=== PATIENT | female | born 1975 | race Caucasian/White ===

== ENCOUNTER 2016-12-22 17:53 | Inpatient (IN) | payer MEDICAID, OTHER ==
[~2016-12-22] VITALS: Ht 154.9 cm; Wt 66.0 kg
[2016-12-22 18:27] VITALS: Ht 154.9 cm; Wt 66.0 kg
[2016-12-22] MEDS ORDERED: SOD CHLORIDE 0.9% 1,000 ML IV STA (20:08)
[2016-12-22] MEDS ORDERED: morphine 4 MG/ML VIAL IV STA (20:08)
[2016-12-22] MEDS ORDERED: ONDANSETRON 4 MG INJ IV STA (20:08)
[2016-12-22 20:47] LABS: ADD SCAN DIFF NO
[2016-12-22 20:50] LABS: ADD UMIC YES; URINE BILIRUBIN (Dip) NEGATIVE (NEGATIVE); URINE BLOOD (Dip) 1+ (NEGATIVE); URINE COLOR LT. YELLOW (YELLOW); URINE GLUCOSE (Dip) NEGATIVE (NEGATIVE); URINE KETONES (Dip) TRACE (NEGATIVE); URINE LEUKOCYTE ESTERASE (Dip) TRACE (NEGATIVE); URINE NITRITE (Dip) POSITIVE (NEGATIVE); URINE TOTAL PROTEIN (Dip) TRACE (NEGATIVE); URINE UROBILINOGEN (Dip) 0.2 E.U./dL (0.1-1.0)
[2016-12-22 20:53] LABS: ABNORMAL IP MESSAGE 1; HEMATOCRIT 23.7 % (37.0-47.0); MEAN CORPUSCULAR HEMOGLOBIN 13.2 pg (29.0-33.0); MEAN CORPUSCULAR HGB CONC 24.9 g/dl (32.0-37.0); MEAN PLATELET VOLUME 9.7 fl (7.4-10.4); PLATELET COUNT 641 10^3/UL (140-415); RED BLOOD COUNT 4.47 10^6/ul (4.20-5.40); RED CELL DISTRIBUTION WIDTH 23.1 % (11.5-14.5); WHITE BLOOD COUNT 13.4 10^3/ul (4.8-10.8)
[2016-12-22 20:59] LABS: BACTERIA,URINE MANY; SQUAMOUS EPITHELIAL CELL,UR FEW
[2016-12-22 21:00] LABS: ALBUMIN 4.6 g/dl (3.3-4.9)
[2016-12-22 21:01] LABS: POTASSIUM 3.5 mmol/L (3.5-5.1)
[2016-12-22 21:03] LABS: ALBUMIN/GLOBULIN RATIO 1.27; CREATININE 0.6 mg/dl (0.44-1.00); TOTAL PROTEIN 8.2 g/dl (6.1-8.1)
[2016-12-22 21:04] LABS: CALCIUM 9.1 mg/dl (8.4-10.2)
[2016-12-22 21:26] LABS: HYPOCHROMASIA 3+; LYMPHOCYTES # 1.7 10^3/ul (0.8-2.9); MONOCYTE # 0.8 10^3/ul (0.3-0.9); NEUTROPHIL # 10.9 10^3/ul (1.6-7.5); OVALOCYTES 2+; PLATELET ESTIMATE PLT APPEAR INCREASED
[2016-12-22] MEDS ORDERED: ACETAMINOPHEN 325 MG TAB PO ONE (21:30)
[2016-12-22] MEDS ORDERED: CEFTRIAXONE 1 GM/50 ML (PMX) 50 ML IVPB ONE (21:30)
[2016-12-22 21:31] LABS: INR 1.15; PROTIME 14.7 Sec (12.2-14.2); PT RATIO 1.1
--- NOTE | 2016-12-22 22:04 | ERD ---
ER Documentation Chief Complaint Date/Time DATE: 12/22/16 TIME: 22:02 Chief Complaint abdominal pain x 4 days HPI This is a 41-year-old female presents to the ER with lower abdominal pain for the last 4 days. Patient went to her clinic and she was sent to the ER. Patient admits to nausea she denies vomiting and diarrhea. Her appetite is decreased. Patient states that pain is worse whenever she eats. Pain is located in the lower pelvic area. Patient has had fevers and chills at home. Patient does admit to painful urination however denies urinary frequency she denies any vaginal discharge. Patient denies any flank pain. ROS 12 point review of systems was done, all negative except per HPI. Allergies Allergies: Coded Allergies: No Known Drug Allergies (Verified Allergy, Unknown, 12/22/16) PMhx/Soc Medical and Surgical Hx: pt denies Medical Hx History of Surgery: Yes ( X3, ETOPIC PREG X1) Anesthesia Reaction: No Hx Neurological Disorder: No Hx Respiratory Disorders: No Hx Cardiac Disorders: No Hx Psychiatric Problems: No Hx Miscellaneous Medical Probl: No Hx Alcohol Use: No Hx Substance Use: No Hx Tobacco Use: No Smoking Status: Never smoker Physical Exam Vitals Vital Signs Date Time Temp Pulse Resp B/P Pulse Ox O2 Delivery O2 Flow Rate FiO2 12/22/16 18:27 100.6 114 20 114/54 98 Physical Exam GENERAL: The patient is well developed and appropriate for usual state of health , in no apparent distress. HEENT: Atraumatic. CHEST: Clear to auscultation bilaterally. There are no rales, wheezes or rhonchi. HEART: Regular rate and rhythm. No murmurs, clicks, rubs or gallops. ABDOMEN: Soft, nontender and nondistended. Good bowel sounds. No rebound or guarding. No gross peritonitis. No gross organomegaly or masses. No Turner sign or McBurney point tenderness. Patient has severe suprapubic tenderness BACK: No midline or flank tenderness. NEURO: Alert and oriented SKIN: The skin is warm and dry. Result Diagram: 12/22/16203612/22/162036 Results 24 hrs Laboratory Tests Test 12/22/16 20:37 White Blood Count 13.410^3/ul Red Blood Count 4.4710^6/ul Hemoglobin 5.9g/dl Hematocrit 23.7% Mean Corpuscular Volume 53.0fl Mean Corpuscular Hemoglobin 13.2pg Mean Corpuscular Hemoglobin Concent 24.9g/dl Red Cell Distribution Width 23.1% Platelet Count 24411^3/UL Mean Platelet Volume 9.7fl Neutrophils % 81.0% Lymphocytes % 13.0% Monocytes % 6.0% Neutrophils # 10.910^3/ul Lymphocytes # 1.710^3/ul Monocytes # 0.810^3/ul Platelet Estimate PLT APPEAR INCREASED Hypochromasia 3+ Ovalocytes 2+ Prothrombin Time 14.7Sec Prothrombin Time Ratio 1.1 INR International Normalized Ratio 1.15 Activated Partial Thromboplast Time 27.0Sec Urine Color LT. YELLOW Urine Clarity CLOUDY Urine pH 6.0 Urine Specific Bode 1.020 Urine Ketones TRACE Urine Nitrite POSITIVE Urine Bilirubin NEGATIVE Urine Urobilinogen 0.2 E.U./dL Urine Leukocyte Esterase TRACE Urine Microscopic RBC 10-25/HPF Urine Microscopic WBC 2-5/HPF Urine Squamous Epithelial Cells FEW Urine Bacteria MANY Urine Hemoglobin 1+ Urine Glucose NEGATIVE% Urine Total Protein TRACE Sodium Level 139mmol/L Potassium Level 3.5mmol/L Chloride Level 101mmol/L Carbon Dioxide Level 24mmol/L Anion Gap 18 Blood Urea Nitrogen 11mg/dl Creatinine 0.60mg/dl Glucose Level 107mg/dl Calcium Level 9.1mg/dl Total Bilirubin 1.0mg/dl Direct Bilirubin 0.00mg/dl Indirect Bilirubin 1.0mg/dl Aspartate Amino Transf (AST/SGOT) 15IU/L Alanine Aminotransferase (ALT/SGPT) 19IU/L Alkaline Phosphatase 64IU/L Total Protein 8.2g/dl Albumin 4.6g/dl Globulin 3.60g/dl Albumin/Globulin Ratio 1.27 Lipase 38U/L Current Medications Medications (Trade) Dose Ordered Sig/Libia Route PRN Reason Start Time Stop Time Status Last Admin Dose Admin Sodium Chloride (NS) 1,000 ml @ 1,000 mls/hr Q1H STAT IV 12/22/16 20:08 12/22/16 21:07 DC 12/22/16 20:37 Morphine Sulfate (morphine) 4 mg ONCE STAT IV 12/22/16 20:08 12/22/16 20:12 DC 12/22/16 20:37 Ondansetron HCl (Zofran Inj) 4 mg ONCE STAT IV 12/22/16 20:08 12/22/16 20:12 DC 12/22/16 20:36 Acetaminophen 650 mg 650 mg ONCE ONCE PO 12/22/16 21:30 12/22/16 21:31 DC 12/22/16 21:38 Ceftriaxone Sodium (Rocephin) 50 ml @ 100 mls/hr ONCE ONCE IVPB 12/22/16 21:30 12/22/16 21:59 DC 12/22/16 21:38 Procedures/MDM This is a 41-year-old female presents to the ER with abdominal pain. At this time patient's hemoglobin is critically low and transfusion was ordered for patient. Patient will be admitted into the hospital. She also has a urinary tract infection, ceftriaxone was started here in the ER. Departure Diagnosis: Primary Impression: Anemia Additional Impression: UTI (urinary tract infection) Condition: Stable DOMITILA CINTRON Dec 22, 2016 22:04
--- NOTE | 2016-12-22 22:38 | RADRPT ---
PROCEDURE: CT abdomen and pelvis without contrast. CLINICAL INDICATION: Lower abdominal pain TECHNIQUE: CT scan of the abdomen and pelvis without contrast was performed on a multislice CT [facility] utilizing axial imaging from the lung bases through the pubis symphysis. The patient was scann ed without intravenous contrast. Sagittal and coronal reformatted images were made. The CTDIvol is 8.07 mGy and the DLP is 417.13 mGycm. One of the following 3 dose reduction techniques were used during this CT examination: automated exp osure control; adjustment of the mA and /or kV according to patient size; or use of iterative recons truciton technique. COMPARISON: None. FINDINGS: The lung bases are remarkable for a 6 mm right peripheral mid lobe nodule. Scarring is noted in the bilateral lung bases. Mild cardiomegaly is present. The visualized liver, spleen, pancreas, and bilateral adrenal glands are normal. The gallbladder de monstrates cholelithiasis without evidence for acute cholecystitis. The stomach is decompressed. Th e bilateral kidneys are normal. No evidence for hydroureteronephrosis or nephroureterolithiasis is present. The visualized bowel in the is nonobstructive. No evidence for diverticulosis, diverticulitis or ap pendicitis is present. Mild mesenteric inflammation is noted in the left lower quadrant of the abdom en adjacent to the descending and sigmoid colonic junction. This may represent a mesenteritis, infl ammation secondary to inflamed uterus , subserosal myoma or adnexal lesion. Additional imaging with CT or MRI with contrast would be helpful. The visualized pelvis demonstrates moderate distension of the urinary bladder. The imaged portions of the uterus and bilateral adnexa are normal. No pelvic mass, lymphadenopathy, or free fluid is se en. There is no evidence of free air. No aneurysmal dilatation of the aorta is evident. The surrounding osseous structures are remarkable for degenerative spondylosis.. IMPRESSION: 1. Mild left lower quadrant hemipelvic mesenteric inflammation. Differential to include mesenterit is, inflamed subserosal uterine myoma or pelvic uterine infection, or inflammation adjacent to a lob ular left hemipelvic or adnexal lesion. Recommend follow-up CT or MRI with contrast to further evalu ate. 2. 6 mm right peripheral mid lobe nodule. Recommend follow-up CT at 6 months and high risk the pat ient's and 12 months at low risk the patient's per Fleishner Society guidelines. 3. Bibasilar scarring 4. Mild cardiomegaly 5. Cholelithiasis without evidence for acute cholecystitis. RPTAT: HDC .Chiqui Gonzalez MD, MD Date Time Electronically viewed and signed by .Chiqui Gonzalez MD, MD on 12/22/2016 22:38 .C/
[2016-12-22] MEDS ORDERED: ACET325T45 PO (22:39)
--- NOTE | 2016-12-22 22:40 | RADRPT ---
PROCEDURE: US Pelvis. CLINICAL INDICATION: Pelvic pain TECHNIQUE: Multiple sonographic images of the pelvis were obtained utilizing a transabdominal and endovaginal technique. The images were reviewed on a PACS workstation. COMPARISON: CT abdomen and pelvis 12/22/2016 FINDINGS: Uterus: Normal in size, contour and echogenicity with no evidence for myometrial masses. Size is est imated at 9.6 x 6.4 x 4.7 cm. Cervix: No abnormalities of significance are seen. Endometrium: Normal in thickness for the patient's age and likely phase of menstruation; 15.9 mm. Right ovary / adnexa: Normal in size estimated at 3 x 2.6 x 2.2 cm. No evidence for masses, normal blood flow on Doppler interrogation. Left ovary/adnexa: Normal in size estimated at 4.3 x 2.7 x 2.5 cm. No evidence for solid masses, no rmal blood flow on Doppler interrogation. Cul-de-sac: Mild amount of free fluid is present. RPTAT:HJJR IMPRESSION: Mild amount of cul-de-sac free fluid, otherwise unremarkable pelvic ultrasound without findings to yong talbot with the CT from earlier the same day. Physician Jeanine Date Time Electronically viewed and signed by Physician Jeanine on 12/22/2016 22:40 JR/
--- NOTE | 2016-12-22 23:01 | RADRPT ---
PROCEDURE: XR Chest. CLINICAL INDICATION: Chest pain. Abdominal pain TECHNIQUE: Portable AP upright view of the chest was obtained. COMPARISON: None. FINDINGS: The cardiomediastinal silhouette is within upper normal limits. The lungs are clear. There is no e vidence for pleural effusion, pneumothorax or pulmonary vascular congestion. The osseous structures are intact with no evidence for acute abnormality. No free air is seen below the diaphragm. RPTAT:HJJR IMPRESSION: No evidence for acute intrathoracic pathology. Physician Jeanine Date Time Electronically viewed and signed by Physician Jeanine on 12/22/2016 23:01 /
[2016-12-23] MEDS: DEXTROSE 5%-0.45% NACL 1,000 ML IV SCH ×3 (02:47→16:06)
[2016-12-23] MEDS ORDERED: ONDANSETRON 4 MG INJ IV PRN (03:00)
[2016-12-23] MEDS ORDERED: morphine 2 MG INJ IV PRN (03:00)
[2016-12-23] MEDS ORDERED: ACETAMINOPHEN 325 MG TAB PO PRN (03:00)
[2016-12-23] MEDS ORDERED: NACL 0.9% 3 ML SYG IV SCH (03:00)
--- NOTE | 2016-12-23 05:32 | HP ---
Date/Time of Note Date/Time of Note DATE: 12/23/16 TIME: 05:20 Assessment/Plan VTE Prophylaxis VTE Prophylaxis Intervention: SCD's Lines/Catheters IV Catheter Type (from Nrsg): Saline Lock Assessment/Plan Assessment/Plan 1. Sepsis 2/2 LLQ mesenteric inflammation - will obtain CT a/p with contrast for better evaluation - broad spectrum abx - f/u culture results - Pain mgmt - GI consult 2. LLQ abd pain: see above 3. Severe Anemia - Blood transfusion - f/u ferritin, iron panel and FOBT - LDH, haptoglobin to eval for hemolysis - Hematology consult as needed 4. Lung nodule - repeat CT scan in 6 months HPI/ROS Admit Date/Time Admit Date/Time Hx of Present Illness This is a 41 yo female with hx of ectopic 13 years ago and x 2 who presented with 4 days hx of abd pain. pain is mainly localized in LLQ. Reported decreased po intake because of pain, but said when she takes liquid, pain is somehow better. Reported fever the first day pain started. In ER, she was found to have a hgb of 5.9, WBC 13,000, temp 100.6, HR 114, BP 114/54. She denied hematemesis, dark stool or BRBPR. Denied hx of anemia. She said her periods have been regular and denied hx of heavy menses. CT a/p showed mild LLQ mesenteric inflammation, cholelithiasis without cholecystitis and in the lung, there is a 6mm Right peripheral mid lobe nodule. . PMH/Family/Social Social History Smoking Status: Never smoker Exam/Review of Systems Vital Signs Vitals Vital Signs Date Time Temp Pulse Resp B/P Pulse Ox O2 Delivery O2 Flow Rate FiO2 12/22/16 18:27 100.6 114 20 114/54 98 Exam Constitutional: alert, oriented, well developed Head: atraumatic, normocephalic Eyes: EOMI, PERRL Respiratory: clear to auscultation, normal air movement Cardiovascular: other (tachycardic with regular rhythm) Gastrointestinal: soft, tender (in LLQ area. No guarding, no rigidity, no rebound tenderness) Extremities: normal pulses Labs Result Diagram: 12/22/16203612/22/162036 Medications Medications Current Medications Dextrose/Sodium Chloride (D5-1/2ns) 1,000 ml @ 125 mls/hr Q8H IV ; Start at 02:47 Ondansetron HCl (Zofran Inj) 4 mg Q6H PRN IV NAUSEA AND/OR VOMITING; Start at 03:00 Acetaminophen (Tylenol Tab) 650 mg Q6H PRN PO PAIN LEVEL 1-3 OR FEVER; Start at 03:00 Morphine Sulfate (morphine) 2 mg Q4H PRN IV SEVERE PAIN LEVEL 7-10; Start 12/23 at 03:00 Pantoprazole 40 mg 40 mg DAILY@06 IV ; Start 12/23/16 at 06:00 Levofloxacin/ Dextrose (Levaquin 500mg/ D5W 100 ml (Pmx)) 100 ml @ 100 mls/hr Q24H IVPB ; Start 12/23/16 at 06:00 KENDALL LINDSEY MD Dec 23, 2016 05:30
[2016-12-23] MEDS ORDERED: PANTOPRAZOLE 40 MG INJ IV SCH (06:00)
[2016-12-23] MEDS: LEVOFLOXACIN 500MG/D5W (PMX) 100 ML IVPB SCH (07:10)
[2016-12-23 08:48] LABS: ADD SCAN DIFF NO
[2016-12-23 08:51] LABS: ABNORMAL IP MESSAGE 1; BASOPHILS % 0.3 % (0.0-2.0); EOSINOPHILS # 0.1 10^3/ul (0.0-0.5); EOSINOPHILS % 1.1 % (0.0-7.0); HEMOGLOBIN 7.9 g/dl (12.0-16.0); LYMPHOCYTES # 1.3 10^3/ul (0.8-2.9); LYMPHOCYTES % 14.6 % (15.0-51.0); MEAN CORPUSCULAR HGB CONC 27.6 g/dl (32.0-37.0); MEAN CORPUSCULAR VOLUME 60.7 fl (82.0-101.0); MONOCYTES % 11.5 % (0.0-11.0); NEUTROPHIL # 6.4 10^3/ul (1.6-7.5); NEUTROPHILS % 72.3 % (39.0-77.0); RED BLOOD COUNT 4.71 10^6/ul (4.20-5.40); WHITE BLOOD COUNT 8.9 10^3/ul (4.8-10.8)
[2016-12-23 09:01] LABS: IRON 81 ug/dl (35-150)
[2016-12-23 09:03] LABS: HEMATOCRIT 28.6 % (37.0-47.0); MEAN CORPUSCULAR HEMOGLOBIN 16.8 pg (29.0-33.0); PLATELET COUNT 483 10^3/UL (140-415); RED CELL DISTRIBUTION WIDTH 32.5 % (11.5-14.5)
[2016-12-23 09:07] LABS: ALBUMIN 3.7 g/dl (3.3-4.9); ALBUMIN/GLOBULIN RATIO 1.08; BILIRUBIN,INDIRECT 2.4 mg/dl (0-1.1); BILIRUBIN,TOTAL 2.4 mg/dl (0.2-1.3); CALCIUM 8.3 mg/dl (8.4-10.2); CREATININE 0.53 mg/dl (0.44-1.00); MAGNESIUM 2.3 mg/dl (1.7-2.5); POTASSIUM 3.6 mmol/L (3.5-5.1); TOTAL PROTEIN 7.1 g/dl (6.1-8.1)
[2016-12-23 09:10] LABS: TOTAL IRON BINDING CAPACITY 319 ug/dl (241-421)
[2016-12-23 09:41] LABS: FERRITIN 11.6 ng/ml (6.2-137.0)
[2016-12-23] MEDS ORDERED: IOHEXOL 300MG/ML 150 ML BTL ONE (11:37)
[2016-12-23] MEDS ORDERED: SOD CHLORIDE 0.9% 100 ML ONE (11:37)
--- NOTE | 2016-12-23 12:29 | RADRPT ---
PROCEDURE: CT Abdomen and Pelvis with contrast. CLINICAL INDICATION: Abdominal pain TECHNIQUE: CT scan of the abdomen and pelvis with contrast was performed on a multidetector high-r esolution CT scanner. Coronal and sagittal reformatted images were obtained from the axial source im ages. Images were reviewed on a high-resolution PACS workstation. 80 cc of Isovue 300 iodinated cont rast was administered intravenously without reported complication. The total exam CTDI equals 9 mGy and the total exam DLP equals 531 mGy-cm. One or more of the following dose reduction techniques w ere used: Automated exposure control, Adjustment of the mA and/or kV according to patient size, and/ or use of iterative reconstruction technique. COMPARISON: Abdominal CT 12/22/2016 FINDINGS: The heart is mildly enlarged. Right middle lobe 6 mm nodule is stable size. Increasing bibasilar atelectasis. No suspicious hepatic mass identified. The portal vein is patent . No evidence of pancreatic ductal dilatation. The spleen and adrenals are unremarkable. Cholelit hiasis without focal pericholecystic inflammatory changes. No hydronephrosis. No obstructing renal stone. No bowel obstruction. Normal-caliber appendix. No significant retroperitoneal lymphadenopathy, ascites or evidence of pneumoperitoneum. Rim enhancing, dilated tubular structure at the left adnexa with associated inflammatory stranding h as progressed from prior. No drainable rim-enhancing fluid collection is identified. IMPRESSION: Rim enhancing, dilated tubular structure at the left adnexa with associated inflammatory stranding h as progressed from prior. Recommend clinical correlation for possible pelvic inflammatory disease. The findings are concerning for left hydrosalpinx/pyosalpinx. No drainable tubo-ovarian abscess is visualized. No evidence of bowel obstruction. Cholelithiasis without associated pericholecystic inflammatory changes. Normal-caliber appendix. Right middle lobe 6 mm nodule is stable size. RPTAT: AA .Orville Moralez MD, Date Time Electronically viewed and signed by .Orville Moralez MD, on 12/23/2016 12:28 .T/
[2016-12-23 14:31] LABS: HEMOGLOBIN 5.9 g/dl (12.0-16.0)
[2016-12-23 15:05] VITALS: BP 101/59; PULSE 98; RESP 16
--- NOTE | 2016-12-23 16:46 | CONS ---
Date/Time of Note Date/Time of Note DATE: 12/23/16 TIME: 16:33 Assessment/Plan Assessment/Plan Chief Complaint/Hosp Course The patient is a 41 year old female with sepsis 2/2 LLQ mesenteric inflammation , found to have severe microcytic anemia with elevated RDW # Severe microcytic anemia, 5.9 on admission, MCV 53 with elevated RDW 23 suggesting iron deficiency - Iron panel Fe 81, TIBC 319, %sat 25, ferritin 11.6 consistent with iron deficiency. Patient denies history of anemia which argues against inherited disorder such as thalassemia, as does elevated RDW, though will send hemoglobin electrophoresis to rule out concomitant inherited disorder that accounts for severe microcytosis. - Hgb improved to 7.9 s/p 2 units pRBCs - Will give IV iron while in house - Would agree with GI evaluation and Services Program Manager evaluation - Indirect hyperbilirubinemia may be related to hemolysis from transfusion, monitor - f/u LDH, haptoglobin retic count, FOBT # Lung nodule, 6 mm right peripheral mid lobe nodule - repeat CT scan in 6 months Problems: Consultation Date/Type/Reason Admit Date/Time Date of Consultation: Dec 23, 2016 Type of Consultation: Hematology Reason for Consultation Severe microcytic anemia Hx of Present Illness This is a 41 year old female with history of ectopic 13 years ago and x 2 who presented with 4 day history of abdominal pain mainly localized in LLQ. States piain is worse with eating and urinating. Reported fever the first day pain started. In ER, she was found to have a hgb of 5.9, WBC 13,000, temp 100.6, HR 114, BP 114/54. She denied hematemesis, dark stool or BRBPR. Denied history of anemia. She said her periods have been regular and denied history of heavy menses. Her periods last 2 days, 6 pads per day but are not soaked. She has been feeling tired for 1 month. No other bleeding. She has been feeling short of breath while climbing stairs. CT A/P showed mild LLQ mesenteric inflammation, cholelithiasis without cholecystitis and in the lung, there is a 6mm right peripheral mid lobe nodule. CT A/P with contrast 12/23/16 Rim enhancing, dilated tubular structure at the left adnexa with associated inflammatory stranding has progressed from prior. Recommend clinical correlation for possible pelvic inflammatory disease. The findings are concerning for left hydrosalpinx/pyosalpinx. No drainable tubo-ovarian abscess is visualized. No evidence of bowel obstruction. Cholelithiasis without associated pericholecystic inflammatory changes. Normal-caliber appendix. Right middle lobe 6 mm nodule is stable size. CT A/P without contrast 12/22/16 1. Mild left lower quadrant hemipelvic mesenteric inflammation. Differential to include mesenteritis, inflamed subserosal uterine myoma or pelvic uterine infection, or inflammation adjacent to a lobular left hemipelvic or adnexal lesion. Recommend follow-up CT or MRI with contrast to further evaluate. 2. 6 mm right peripheral mid lobe nodule. Recommend follow-up CT at 6 months and high risk the patient's and 12 months at low risk the patient's per Fleishner Society guidelines. 3. Bibasilar scarring 4. Mild cardiomegaly 5. Cholelithiasis without evidence for acute cholecystitis. Past Medical History Medical History: no pertinent history Family History Significant Family History: no pertinent family hx Social History Alcohol Use: none Smoking Status: Never smoker Exam/Review of Systems Vital Signs Vitals Vital Signs Date Time Temp Pulse Resp B/P Pulse Ox O2 Delivery O2 Flow Rate FiO2 12/23/16 15:05 98.0 98 16 101/59 98 Room Air Exam Constitutional: alert, oriented Psych: no complaints Head: normocephalic Eyes: nl conjunctiva Neck: supple Respiratory: clear to auscultation Cardiovascular: regular rate and rhythm Gastrointestinal: soft, tender (LLQ tenderness to palpation) Musculoskeletal: nl extremities to inspection Results Result Diagram: 12/23/16 0825 12/23/16 0825 Results 24 hrs Laboratory Tests Test 12/22/16 20:37 12/22/16 22:50 12/23/16 08:25 White Blood Count 13.4 H 8.9 # Red Blood Count 4.47 4.71 Hemoglobin 5.9 *L 7.9 #L Hematocrit 23.7 L 28.6 #L Mean Corpuscular Volume 53.0 L 60.7 L Mean Corpuscular Hemoglobin 13.2 L 16.8 #L Mean Corpuscular Hemoglobin Concent 24.9 L 27.6 L Red Cell Distribution Width 23.1 H 32.5 #H Platelet Count 641 H 483 #H Mean Platelet Volume 9.7 Neutrophils % 81.0 H 72.3 Lymphocytes % 13.0 L 14.6 L Monocytes % 6.0 11.5 H Neutrophils # 10.9 H 6.4 Lymphocytes # 1.7 1.3 Monocytes # 0.8 1.0 H Platelet Estimate PLT APPEAR INCREASED Hypochromasia 3+ Ovalocytes 2+ Prothrombin Time 14.7 H Prothrombin Time Ratio 1.1 INR International Normalized Ratio 1.15 Activated Partial Thromboplast Time 27.0 Urine Color LT. YELLOW Urine Clarity CLOUDY Urine pH 6.0 Urine Specific New Site 1.020 Urine Ketones TRACE H Urine Nitrite POSITIVE H Urine Bilirubin NEGATIVE Urine Urobilinogen 0.2 E.U./dL Urine Leukocyte Esterase TRACE H Urine Microscopic RBC 10-25 Urine Microscopic WBC 2-5 Urine Squamous Epithelial Cells FEW Urine Bacteria MANY Urine Hemoglobin 1+ H Urine Glucose NEGATIVE Urine Total Protein TRACE Sodium Level 139 138 Potassium Level 3.5 3.6 Chloride Level 101 107 Carbon Dioxide Level 24 24 Anion Gap 18 H 11 # Blood Urea Nitrogen 11 12 Creatinine 0.60 0.53 Glucose Level 107 91 Calcium Level 9.1 8.3 L Total Bilirubin 1.0 2.4 H Direct Bilirubin 0.00 0.00 Indirect Bilirubin 1.0 2.4 H Aspartate Amino Transf (AST/SGOT) 15 11 L Alanine Aminotransferase (ALT/SGPT) 19 27 Alkaline Phosphatase 64 55 Total Protein 8.2 H 7.1 # Albumin 4.6 3.7 Globulin 3.60 H 3.40 H Albumin/Globulin Ratio 1.27 1.08 Lipase 38 Lactic Acid Level 0.6 Eosinophils % 1.1 Basophils % 0.3 Nucleated Red Blood Cells % 0.0 Eosinophils # 0.1 Basophils # 0.0 Nucleated Red Blood Cells # 0.0 Phosphorus Level 3.0 Magnesium Level 2.3 Iron Level 81 Total Iron Binding Capacity 319 Percent Iron Saturation 25 Ferritin 11.6 Medications Medications Current Medications Dextrose/Sodium Chloride (D5-1/2ns) 1,000 ml @ 125 mls/hr Q8H IV Last administered on 12/23/16t 16:06; Admin Dose 125 MLS/HR; Start 12/23/16 at 02:47 Ondansetron HCl (Zofran Inj) 4 mg Q6H PRN IV NAUSEA AND/OR VOMITING; Start at 03:00 Acetaminophen (Tylenol Tab) 650 mg Q6H PRN PO PAIN LEVEL 1-3 OR FEVER; Start at 03:00 Morphine Sulfate (morphine) 2 mg Q4H PRN IV SEVERE PAIN LEVEL 7-10; Start 12/23 at 03:00 Pantoprazole 40 mg 40 mg DAILY@06 IV Last administered on 12/23/16 07:09; Admin Dose 40 MG; Start 12/23/16 at 06:00 Levofloxacin/ Dextrose 100 ml @ 100 mls/hr Q24H IVPB Last administered on 12/23 07:10; Admin Dose 100 MLS/HR; Start 12/23/16 at 06:00 Ferric Sodium Gluconate Complex/ Sodium Chloride (Ferrlecit/NS) 110 ml @ 100 mls/hr Q24H IVPB ; Start 12/23/16 at 17:00; Stop 12/25/16 at 18:05 TOKELLY MD Dec 23, 2016 16:46
[2016-12-23] MEDS ORDERED: SOD FERRIC GLUC COMPLX 125 MG in SOD CHLORIDE 0.9% 100 ML IVPB SCH (17:00)
--- NOTE | 2016-12-23 17:09 | CONS ---
Date/Time of Note Date/Time of Note DATE: 12/23/16 TIME: 16:46 Assessment/Plan Assessment/Plan Additional Assessment/Plan 41 y/o with abdominal and pelvic pain, possible PID -clinically improving, continue antibiotics -check GC/chlamydia -discharge home with oral antibiotics x2 weeks -f/u with outpatient Instrument Mechanic Consultation Date/Type/Reason Admit Date/Time Date of Consultation: Dec 23, 2016 Type of Consultation: Instrument Mechanic Hx of Present Illness 41 y/o who presents with lower abdominal pain. Patient reports pain is new -onset and started 5 days ago. Pain was constant, improved since admission. Seems to be worse with urination. +chills 5 days ago and yesterday, which was low-grade. Denies any abnormal vaginal discharge. No N/V. Periods are regular , LMP 12/03/16. Sexually active with , stable partner. Denies h/o STDs. +h/o ectopic s/p salpingectomy. Per HPI. Other systems negative. Past Medical History Medical History: no pertinent history Past Surgical History CS x3, salpingectomy for ectopic Social History Denies habits. Smoking Status: Never smoker Exam/Review of Systems Vital Signs Vitals Vital Signs Date Time Temp Pulse Resp B/P Pulse Ox O2 Delivery O2 Flow Rate FiO2 12/23/16 15:05 98.0 98 16 101/59 98 Room Air Exam Gen: NAD Abd: soft, +ttp in LLQ and suprapubic area Pelvic: no CMT, +suprapubic and L. adnexal ttp, no r/g Pelvic CT: Rim enhancing, dilated tubular structure at the left adnexa with associated inflammatory stranding has progressed from prior. Recommend clinical correlation for possible pelvic inflammatory disease. The findings are concerning for left hydrosalpinx/pyosalpinx. Pelvic US: Uterus: Normal in size, contour and echogenicity with no evidence for myometrial masses. Size is estimated at 9.6 x 6.4 x 4.7 cm. Cervix: No abnormalities of significance are seen. Endometrium: Normal in thickness for the patient's age and likely phase of menstruation; 15.9 mm. Right ovary / adnexa: Normal in size estimated at 3 x 2.6 x 2.2 cm. No evidence for masses, normal blood flow on Doppler interrogation. Left ovary/adnexa: Normal in size estimated at 4.3 x 2.7 x 2.5 cm. No evidence for solid masses, normal blood flow on Doppler interrogation. Cul-de-sac: Mild amount of free fluid is present. Results Result Diagram: 12/23/16 0825 12/23/16 0825 Results 24 hrs Laboratory Tests Test 12/22/16 20:37 12/22/16 22:50 12/23/16 08:25 White Blood Count 13.4 H 8.9 # Red Blood Count 4.47 4.71 Hemoglobin 5.9 *L 7.9 #L Hematocrit 23.7 L 28.6 #L Mean Corpuscular Volume 53.0 L 60.7 L Mean Corpuscular Hemoglobin 13.2 L 16.8 #L Mean Corpuscular Hemoglobin Concent 24.9 L 27.6 L Red Cell Distribution Width 23.1 H 32.5 #H Platelet Count 641 H 483 #H Mean Platelet Volume 9.7 Neutrophils % 81.0 H 72.3 Lymphocytes % 13.0 L 14.6 L Monocytes % 6.0 11.5 H Neutrophils # 10.9 H 6.4 Lymphocytes # 1.7 1.3 Monocytes # 0.8 1.0 H Platelet Estimate PLT APPEAR INCREASED Hypochromasia 3+ Ovalocytes 2+ Prothrombin Time 14.7 H Prothrombin Time Ratio 1.1 INR International Normalized Ratio 1.15 Activated Partial Thromboplast Time 27.0 Urine Color LT. YELLOW Urine Clarity CLOUDY Urine pH 6.0 Urine Specific [place] 1.020 Urine Ketones TRACE H Urine Nitrite POSITIVE H Urine Bilirubin NEGATIVE Urine Urobilinogen 0.2 E.U./dL Urine Leukocyte Esterase TRACE H Urine Microscopic RBC 10-25 Urine Microscopic WBC 2-5 Urine Squamous Epithelial Cells FEW Urine Bacteria MANY Urine Hemoglobin 1+ H Urine Glucose NEGATIVE Urine Total Protein TRACE Sodium Level 139 138 Potassium Level 3.5 3.6 Chloride Level 101 107 Carbon Dioxide Level 24 24 Anion Gap 18 H 11 # Blood Urea Nitrogen 11 12 Creatinine 0.60 0.53 Glucose Level 107 91 Calcium Level 9.1 8.3 L Total Bilirubin 1.0 2.4 H Direct Bilirubin 0.00 0.00 Indirect Bilirubin 1.0 2.4 H Aspartate Amino Transf (AST/SGOT) 15 11 L Alanine Aminotransferase (ALT/SGPT) 19 27 Alkaline Phosphatase 64 55 Total Protein 8.2 H 7.1 # Albumin 4.6 3.7 Globulin 3.60 H 3.40 H Albumin/Globulin Ratio 1.27 1.08 Lipase 38 Lactic Acid Level 0.6 Eosinophils % 1.1 Basophils % 0.3 Nucleated Red Blood Cells % 0.0 Eosinophils # 0.1 Basophils # 0.0 Nucleated Red Blood Cells # 0.0 Phosphorus Level 3.0 Magnesium Level 2.3 Iron Level 81 Total Iron Binding Capacity 319 Percent Iron Saturation 25 Ferritin 11.6 Medications Medications Current Medications Dextrose/Sodium Chloride (D5-1/2ns) 1,000 ml @ 125 mls/hr Q8H IV Last administered on 12/23/16 16:06; Admin Dose 125 MLS/HR; Start 12/23/16 at 02:47 Ondansetron HCl (Zofran Inj) 4 mg Q6H PRN IV NAUSEA AND/OR VOMITING; Start at 03:00 Acetaminophen (Tylenol Tab) 650 mg Q6H PRN PO PAIN LEVEL 1-3 OR FEVER; Start at 03:00 Morphine Sulfate (morphine) 2 mg Q4H PRN IV SEVERE PAIN LEVEL 7-10; Start 12/23 at 03:00 Pantoprazole 40 mg 40 mg DAILY@06 IV Last administered on 12/23/16 07:09; Admin Dose 40 MG; Start 12/23/16 at 06:00 Levofloxacin/ Dextrose 100 ml @ 100 mls/hr Q24H IVPB Last administered on 12/23 07:10; Admin Dose 100 MLS/HR; Start 12/23/16 at 06:00 Ferric Sodium Gluconate Complex/ Sodium Chloride (Ferrlecit/NS) 110 ml @ 100 mls/hr Q24H IVPB ; Start 12/23/16 at 17:00; Stop 12/25/16 at 18:05 JUNIOR DYER Dec 23, 2016 16:56
--- NOTE | 2016-12-23 17:22 | CONS ---
Date/Time of Note Date/Time of Note DATE: 12/23/16 TIME: 17:06 Assessment/Plan Assessment/Plan Additional Assessment/Plan Acute anemia Evaluate GI bleed versus chronic iron deficiency vs other etiology Stool OB, if positive strongly recommend EGD Monitor H&H every 8 hours, transfuse 2 units for hemoglobin less than 7.[address] abdomen: 1. No evidence of bowel obstruction. 2.Cholelithiasis without associated pericholecystic inflammatory changes. Continue PPI BID EGD if clinically indicated, pt advised of R/B/A to procedure and provide informed consent to proceed Question of PID Manager Resort following Review CT/GC results Further recommendations depend on clinical course Patient seen in collaboration with Dr. Campos Consultation Date/Type/Reason Admit Date/Time Type of Consultation: Gastroenterology Hx of Present Illness Mrs. Josy Alston is a 41-year-old female presented to emergency room secondary to worsening lower left quadrant abdominal pain. Patient states symptoms first started on Monday and began to worsen. Patient also reports intermittent fever and chills with symptoms. Patient denies nausea, vomiting, melena stools, diarrhea, heavy periods. Social History Smoking Status: Never smoker Exam/Review of Systems Vital Signs Vitals Vital Signs Date Time Temp Pulse Resp B/P Pulse Ox O2 Delivery O2 Flow Rate FiO2 12/23/16 15:05 98.0 98 16 101/59 98 Room Air Exam Constitutional: alert, oriented, well developed Psych: nl mood/affect Head: normocephalic Eyes: EOMI, nl conjunctiva, nl lids ENMT: nl external ears & nose, nl lips & teeth, nl nasal mucosa & septum Respiratory: clear to auscultation, normal air movement Cardiovascular: regular rate and rhythm Gastrointestinal: soft, left lower quadrant tenderness tender Musculoskeletal: nl extremities to inspection Neurological: LICENSED JOURNEYMAN ELECTRICIAN II-XII intact Results Result Diagram: 12/23/16 0825 12/23/16 0825 Results 24 hrs Laboratory Tests Test 12/22/16 20:37 12/22/16 22:50 12/23/16 08:25 White Blood Count 13.4 H 8.9 # Red Blood Count 4.47 4.71 Hemoglobin 5.9 *L 7.9 #L Hematocrit 23.7 L 28.6 #L Mean Corpuscular Volume 53.0 L 60.7 L Mean Corpuscular Hemoglobin 13.2 L 16.8 #L Mean Corpuscular Hemoglobin Concent 24.9 L 27.6 L Red Cell Distribution Width 23.1 H 32.5 #H Platelet Count 641 H 483 #H Mean Platelet Volume 9.7 Neutrophils % 81.0 H 72.3 Lymphocytes % 13.0 L 14.6 L Monocytes % 6.0 11.5 H Neutrophils # 10.9 H 6.4 Lymphocytes # 1.7 1.3 Monocytes # 0.8 1.0 H Platelet Estimate PLT APPEAR INCREASED Hypochromasia 3+ Ovalocytes 2+ Prothrombin Time 14.7 H Prothrombin Time Ratio 1.1 INR International Normalized Ratio 1.15 Activated Partial Thromboplast Time 27.0 Urine Color LT. YELLOW Urine Clarity CLOUDY Urine pH 6.0 Urine Specific [place] 1.020 Urine Ketones TRACE H Urine Nitrite POSITIVE H Urine Bilirubin NEGATIVE Urine Urobilinogen 0.2 E.U./dL Urine Leukocyte Esterase TRACE H Urine Microscopic RBC 10-25 Urine Microscopic WBC 2-5 Urine Squamous Epithelial Cells FEW Urine Bacteria MANY Urine Hemoglobin 1+ H Urine Glucose NEGATIVE Urine Total Protein TRACE Sodium Level 139 138 Potassium Level 3.5 3.6 Chloride Level 101 107 Carbon Dioxide Level 24 24 Anion Gap 18 H 11 # Blood Urea Nitrogen 11 12 Creatinine 0.60 0.53 Glucose Level 107 91 Calcium Level 9.1 8.3 L Total Bilirubin 1.0 2.4 H Direct Bilirubin 0.00 0.00 Indirect Bilirubin 1.0 2.4 H Aspartate Amino Transf (AST/SGOT) 15 11 L Alanine Aminotransferase (ALT/SGPT) 19 27 Alkaline Phosphatase 64 55 Total Protein 8.2 H 7.1 # Albumin 4.6 3.7 Globulin 3.60 H 3.40 H Albumin/Globulin Ratio 1.27 1.08 Lipase 38 Lactic Acid Level 0.6 Eosinophils % 1.1 Basophils % 0.3 Nucleated Red Blood Cells % 0.0 Eosinophils # 0.1 Basophils # 0.0 Nucleated Red Blood Cells # 0.0 Phosphorus Level 3.0 Magnesium Level 2.3 Iron Level 81 Total Iron Binding Capacity 319 Percent Iron Saturation 25 Ferritin 11.6 Medications Medications Current Medications Dextrose/Sodium Chloride (D5-1/2ns) 1,000 ml @ 125 mls/hr Q8H IV Last administered on 12/23/16t 16:06; Admin Dose 125 MLS/HR; Start 12/23/16 at 02:47 Ondansetron HCl (Zofran Inj) 4 mg Q6H PRN IV NAUSEA AND/OR VOMITING; Start at 03:00 Acetaminophen (Tylenol Tab) 650 mg Q6H PRN PO PAIN LEVEL 1-3 OR FEVER; Start at 03:00 Morphine Sulfate (morphine) 2 mg Q4H PRN IV SEVERE PAIN LEVEL 7-10; Start 12/23 at 03:00 Pantoprazole 40 mg 40 mg DAILY@06 IV Last administered on 12/23/16 07:09; Admin Dose 40 MG; Start 12/23/16 at 06:00 Levofloxacin/ Dextrose 100 ml @ 100 mls/hr Q24H IVPB Last administered on 12/23 07:10; Admin Dose 100 MLS/HR; Start 12/23/16 at 06:00 Ferric Sodium Gluconate Complex 125 mg/Sodium Chloride 110 ml @ 100 mls/hr Q24H IVPB ; Start 12/23/16 at 17:00; Stop 12/25/16 at 18:05 Ferric Sodium Gluconate Complex/ Sodium Chloride (Ferrlecit/NS) 110 ml @ 110 mls/hr Q24H IVPB ; Start 12/23/16 at 17:00; Stop 12/27/16 at 17:59 KYMBERLY ALMARAZ Dec 23, 2016 17:18
[2016-12-23] MEDS: SOD FERRIC GLUC COMPLX 125 MG in SOD CHLORIDE 0.9% 100 ML IVPB SCH (17:35)
[2016-12-23] MEDS: PANTOPRAZOLE 40 MG INJ IV SCH (17:45)
[2016-12-23 19:15] LABS: RETICULOCYTE COUNT % 0.5 % (0.5-1.5)
[2016-12-23 19:19] VITALS: BP 100/61; RESP 18
[2016-12-24] MEDS: DEXTROSE 5%-0.45% NACL 1,000 ML IV SCH ×2 (01:21→16:26)
[2016-12-24 06:22] LABS: ADD SCAN DIFF NO
[2016-12-24 06:39] LABS: ABNORMAL IP MESSAGE 1; BASOPHILS % 0.5 % (0.0-2.0); EOSINOPHILS # 0.2 10^3/ul (0.0-0.5); EOSINOPHILS % 1.7 % (0.0-7.0); HEMATOCRIT 25.7 % (37.0-47.0); HEMOGLOBIN 7.2 g/dl (12.0-16.0); LYMPHOCYTES # 2.5 10^3/ul (0.8-2.9); LYMPHOCYTES % 29.1 % (15.0-51.0); MEAN CORPUSCULAR HEMOGLOBIN 16.6 pg (29.0-33.0); MEAN CORPUSCULAR VOLUME 59.4 fl (82.0-101.0); MONOCYTE # 1.1 10^3/ul (0.3-0.9); MONOCYTES % 12.1 % (0.0-11.0); NEUTROPHIL # 4.9 10^3/ul (1.6-7.5); NEUTROPHILS % 56.1 % (39.0-77.0); PLATELET COUNT 511 10^3/UL (140-415); RED BLOOD COUNT 4.33 10^6/ul (4.20-5.40); RED CELL DISTRIBUTION WIDTH 31.4 % (11.5-14.5); WHITE BLOOD COUNT 8.7 10^3/ul (4.8-10.8)
[2016-12-24 07:02] LABS: CREATININE 0.55 mg/dl (0.44-1.00); PHOSPHORUS 3.4 mg/dl (2.5-4.9)
[2016-12-24 07:03] LABS: CALCIUM 8.4 mg/dl (8.4-10.2); MAGNESIUM 2.3 mg/dl (1.7-2.5)
[2016-12-24] MEDS: PANTOPRAZOLE 40 MG INJ IV SCH ×2 (07:50→20:26)
[2016-12-24] MEDS: LEVOFLOXACIN 500MG/D5W (PMX) 100 ML IVPB SCH (07:50)
--- NOTE | 2016-12-24 08:00 | RADRPT ---
PROCEDURE: US Abdomen. CLINICAL INDICATION: abdominal pain TECHNIQUE: Multiple real-time images were acquired of the patient's utilizing a high resolution t ransducer. COMPARISON: The abdomen 12/23/2016 FINDINGS: The liver demonstrates normal echogenicity and size and no focal lesions are seen. There are multip le stones within the gallbladder. There is no pericholecystic fluid or gallbladder wall thickening. No intrahepatic biliary dilatation is seen. The common bile duct measures 7 mm in maximal dimensio n. The visualized portions of the pancreas are unremarkable. The right kidney measures 11.5 cm without hydronephrosis. Visualized portions of the aorta and IVC are unremarkable. IMPRESSION: Cholelithiasis. No evidence of cholecystitis. There is a borderline appearance the common duct which can be correlate with bilirubin levels. .Stella Miller MD, Date Time Electronically viewed and signed by .Stella Miller MD, MD on 12/24/2016 07:59 .J/
[2016-12-24 08:14] VITALS: BP 101/68; RESP 18
[2016-12-24] MEDS ORDERED: SOD CHLORIDE 0.9% 250 ML IV* ONE (08:48)
[2016-12-24 09:30] LABS: ALBUMIN 3.3 g/dl (3.3-4.9); BILIRUBIN,INDIRECT 0.8 mg/dl (0-1.1); BILIRUBIN,TOTAL 0.8 mg/dl (0.2-1.3); TOTAL PROTEIN 6.5 g/dl (6.1-8.1)
[2016-12-24] MEDS ORDERED: POTASSIUM CHLORIDE (SR) 20 MEQ TAB PO STA (13:30)
--- NOTE | 2016-12-24 13:36 | PN ---
Date/Time of Note Date/Time of Note DATE: 12/24/16 TIME: 13:34 Assessment/Plan VTE Prophylaxis VTE Prophylaxis Intervention: ambulation Lines/Catheters IV Catheter Type (from Nrs): Peripheral IV Assessment/Plan Assessment/Plan The patient is a 41 year old female with sepsis 2/2 LLQ mesenteric inflammation , found to have severe microcytic anemia with elevated RDW # Severe microcytic anemia, 5.9 on admission, MCV 53 with elevated RDW 23 suggesting iron deficiency - Iron panel Fe 81, TIBC 319, %sat 25, ferritin 11.6 consistent with iron deficiency. - Hgb improved with PRBC and will get one more transfusion today. - continue IV iron while in house - agree with GI evaluation and Slasher evaluation - Indirect hyperbilirubinemia may be related to hemolysis from transfusion, monitor -normal LDH, haptoglobin and appropriate retic count, FOBT pending # Lung nodule, 6 mm right peripheral mid lobe nodule - repeat CT scan in 6 months Subjective 24 Hr Interval Summary Free Text/Dictation no change per nursing staff and family Constitutional: no complaints Exam/Review of Systems Vital Signs Vitals Vital Signs Date Time Temp Pulse Resp B/P Pulse Ox O2 Delivery O2 Flow Rate FiO2 12/24/16 08:14 98.0 90 18 101/68 99 12/23/16 15:05 Room Air Intake and Output 12/23/16 12/23/16 12/24/16 15:00 23:00 07:00 Intake Total 365 ml 1710 ml Output Total 0 ml 480 ml Balance 365 ml 1230 ml Exam no change in PE Results Result Diagram: 12/24/16 0522 12/24/16 0522 Results 24 hrs Laboratory Tests Test 12/23/16 19:00 12/24/16 05:22 12/24/16 09:13 12/24/16 12:59 Absolute Reticulocyte Count 0.022 Percent Reticulocyte Count 0.5 Lactate Dehydrogenase 226 L White Blood Count 8.7 Red Blood Count 4.33 Hemoglobin 7.2 L Hematocrit 25.7 L Mean Corpuscular Volume 59.4 L Mean Corpuscular Hemoglobin 16.6 L Mean Corpuscular Hemoglobin Concent 28.0 L Red Cell Distribution Width 31.4 H Platelet Count 511 H Mean Platelet Volume Neutrophils % 56.1 Lymphocytes % 29.1 Monocytes % 12.1 H Eosinophils % 1.7 Basophils % 0.5 Nucleated Red Blood Cells % 0.0 Neutrophils # 4.9 Lymphocytes # 2.5 Monocytes # 1.1 H Eosinophils # 0.2 Basophils # 0.0 Nucleated Red Blood Cells # 0.0 Sodium Level 140 Potassium Level 3.0 L Chloride Level 105 Carbon Dioxide Level 26 Anion Gap 12 Blood Urea Nitrogen 7 Creatinine 0.55 Glucose Level 102 Calcium Level 8.4 Phosphorus Level 3.4 Magnesium Level 2.3 Total Bilirubin 0.8 Direct Bilirubin 0.00 Indirect Bilirubin 0.8 Aspartate Amino Transf (AST/SGOT) 15 Alanine Aminotransferase (ALT/SGPT) 23 Alkaline Phosphatase 51 Total Protein 6.5 Albumin 3.3 Bedside Glucose 105 90 Medications Medications Current Medications Dextrose/Sodium Chloride (D5-1/2ns) 1,000 ml @ 125 mls/hr Q8H IV Last administered on 12/24/16 01:21; Admin Dose 125 MLS/HR; Start 12/23/16 at 02:47 Ondansetron HCl (Zofran Inj) 4 mg Q6H PRN IV NAUSEA AND/OR VOMITING; Start at 03:00 Acetaminophen (Tylenol Tab) 650 mg Q6H PRN PO PAIN LEVEL 1-3 OR FEVER; Start at 03:00 Morphine Sulfate 2 mg 2 mg Q4H PRN IV SEVERE PAIN LEVEL 7-10; Start 12/23/16 at 03:00 Levofloxacin/ Dextrose 100 ml @ 100 mls/hr Q24H IVPB Last administered on 12/24 07:50; Admin Dose 100 MLS/HR; Start 12/23/16 at 06:00 Ferric Sodium Gluconate Complex/ Sodium Chloride (Ferrlecit/NS) 110 ml @ 110 mls/hr Q24H IVPB Last administered on 12/23/16 17:35; Admin Dose 110 MLS/HR; Start 12/23/16 at 17:00; Stop 12/27/16 at 17:59 Pantoprazole (Protonix Iv) 40 mg BID@06,18 IV Last administered on 12/24/16 07 :50; Admin Dose 40 MG; Start 12/23/16 at 18:00 VASILIY HUNTER MD Dec 24, 2016 13:36
--- NOTE | 2016-12-24 16:59 | PN ---
Date/Time of Note Date/Time of Note DATE: 12/24/16 TIME: 16:51 Assessment/Plan VTE Prophylaxis VTE Prophylaxis Intervention: SCD's Lines/Catheters [facility] Per[facility] IV Assessment/Plan Chief Complaint/Hosp Course 1. Sepsis possibly 2/2 PID -Atm Technician consult appreciated -ID consult -Ultrasound of the abdomen shows no cholecystitis -cont Abx 2. Severe Microcytic Anemia secondary to iron deficiency - Blood and Iron transfusion -Hem, gynecology and GI consults appreciated - LDH, reticulocyte count are appropriate -Follow-up on stool occult blood 3. Lung nodule - repeat CT scan in 6 months Prophylaxis: SCDs Problems: Subjective 24 Hr Interval Summary Constitutional: no complaints Exam/Review of Systems Vital Signs Vitals Vital Signs Date Time Temp Pulse Resp B/P Pulse Ox O2 Delivery O2 Flow Rate FiO2 12/24/16 08:14 98.0 90 18 101/68 99 12/23/16 15:05 Room Air Intake and Output 12/23/16 12/23/16 12/24/16 15:00 23:00 07:00 Intake Total 365 ml 1710 ml Output Total 0 ml 480 ml Balance 365 ml 1230 ml Exam Constitutional: alert, oriented Respiratory: clear to auscultation Cardiovascular: regular rate and rhythm Gastrointestinal: soft Musculoskeletal: nl extremities to inspection Results Result Diagram: 12/24/16 0522 12/24/16 0522 Results 24 hrs Laboratory Tests Test 12/23/16 19:00 12/24/16 05:22 12/24/16 09:13 12/24/16 12:59 Absolute Reticulocyte Count 0.022 Percent Reticulocyte Count 0.5 Lactate Dehydrogenase 226 L White Blood Count 8.7 Red Blood Count 4.33 Hemoglobin 7.2 L Hematocrit 25.7 L Mean Corpuscular Volume 59.4 L Mean Corpuscular Hemoglobin 16.6 L Mean Corpuscular Hemoglobin Concent 28.0 L Red Cell Distribution Width 31.4 H Platelet Count 511 H Mean Platelet Volume Neutrophils % 56.1 Lymphocytes % 29.1 Monocytes % 12.1 H Eosinophils % 1.7 Basophils % 0.5 Nucleated Red Blood Cells % 0.0 Neutrophils # 4.9 Lymphocytes # 2.5 Monocytes # 1.1 H Eosinophils # 0.2 Basophils # 0.0 Nucleated Red Blood Cells # 0.0 Sodium Level 140 Potassium Level 3.0 L Chloride Level 105 Carbon Dioxide Level 26 Anion Gap 12 Blood Urea Nitrogen 7 Creatinine 0.55 Glucose Level 102 Calcium Level 8.4 Phosphorus Level 3.4 Magnesium Level 2.3 Total Bilirubin 0.8 Direct Bilirubin 0.00 Indirect Bilirubin 0.8 Aspartate Amino Transf (AST/SGOT) 15 Alanine Aminotransferase (ALT/SGPT) 23 Alkaline Phosphatase 51 Total Protein 6.5 Albumin 3.3 Bedside Glucose 105 90 Medications Medications Current Medications Dextrose/Sodium Chloride (D5-1/2ns) 1,000 ml @ 125 mls/hr Q8H IV Last administered on 12/24/16 16:26; Admin Dose 125 MLS/HR; Start 12/23/16 at 02:47 Ondansetron HCl (Zofran Inj) 4 mg Q6H PRN IV NAUSEA AND/OR VOMITING; Start at 03:00 Acetaminophen (Tylenol Tab) 650 mg Q6H PRN PO PAIN LEVEL 1-3 OR FEVER; Start at 03:00 Morphine Sulfate 2 mg 2 mg Q4H PRN IV SEVERE PAIN LEVEL 7-10; Start 12/23/16 at 03:00 Levofloxacin/ Dextrose 100 ml @ 100 mls/hr Q24H IVPB Last administered on 12/24 07:50; Admin Dose 100 MLS/HR; Start 12/23/16 at 06:00 Ferric Sodium Gluconate Complex/ Sodium Chloride (Ferrlecit/NS) 110 ml @ 110 mls/hr Q24H IVPB Last administered on 12/23/16 17:35; Admin Dose 110 MLS/HR; Start 12/23/16 at 17:00; Stop 12/27/16 at 17:59 Pantoprazole (Protonix Iv) 40 mg BID@06,18 IV Last administered on 12/24/16 07 :50; Admin Dose 40 MG; Start 12/23/16 at 18:00 MAXIMO PEREZ Dec 24, 2016 16:59
[2016-12-24 19:00] VITALS: BP 112/54; RESP 18
[2016-12-24] MEDS: SOD FERRIC GLUC COMPLX 125 MG in SOD CHLORIDE 0.9% 100 ML IVPB SCH (20:04)
[2016-12-25] MEDS: DEXTROSE 5%-0.45% NACL 1,000 ML IV SCH ×2 (02:47→06:12)
[2016-12-25 05:44] LABS: ADD SCAN DIFF NO
[2016-12-25 06:01] LABS: ABNORMAL IP MESSAGE 1; BASOPHIL # 0.1 10^3/ul (0.0-0.1); BASOPHILS % 0.7 % (0.0-2.0); EOSINOPHILS # 0.2 10^3/ul (0.0-0.5); EOSINOPHILS % 2.8 % (0.0-7.0); HEMATOCRIT 29.8 % (37.0-47.0); HEMOGLOBIN 8.5 g/dl (12.0-16.0); LYMPHOCYTES # 2.9 10^3/ul (0.8-2.9); LYMPHOCYTES % 42.1 % (15.0-51.0); MEAN CORPUSCULAR HEMOGLOBIN 17.7 pg (29.0-33.0); MEAN CORPUSCULAR HGB CONC 28.5 g/dl (32.0-37.0); MONOCYTE # 0.9 10^3/ul (0.3-0.9); MONOCYTES % 12.9 % (0.0-11.0); NEUTROPHIL # 2.8 10^3/ul (1.6-7.5); NEUTROPHILS % 41.1 % (39.0-77.0); PLATELET COUNT 517 10^3/UL (140-415); RED BLOOD COUNT 4.81 10^6/ul (4.20-5.40); WHITE BLOOD COUNT 6.8 10^3/ul (4.8-10.8)
[2016-12-25 06:11] LABS: CALCIUM 8.9 mg/dl (8.4-10.2); CREATININE 0.53 mg/dl (0.44-1.00)
[2016-12-25] MEDS: PANTOPRAZOLE 40 MG INJ IV SCH (06:12)
[2016-12-25] MEDS: LEVOFLOXACIN 500MG/D5W (PMX) 100 ML IVPB SCH (06:13)
[2016-12-25 08:09] VITALS: BP 110/67; RESP 16
--- NOTE | 2016-12-25 11:23 | CONS ---
Date/Time of Note Date/Time of Note DATE: 12/25/16 TIME: 11:19 Assessment/Plan Assessment/Plan Chief Complaint/Hosp Course Mrs. Josy Alston is a 41-year-old female presented to emergency room secondary to worsening lower left quadrant abdominal pain. Patient states symptoms first started on Monday and began to worsen. Patient also reports intermittent fever and chills with symptoms. Patient denies nausea, vomiting, melena stools, diarrhea, heavy periods. Problems: Additional Assessment/Plan Acute anemia Likely secondary chronic iron deficiency, continue iron supplementation Stool OB, negative Monitor H&H every 8 hours, transfuse 2 units for hemoglobin less than 7.[address] abdomen: 1. No evidence of bowel obstruction. 2.Cholelithiasis without associated pericholecystic inflammatory changes. Continue PPI BID EGD not clinically indicated HemeOnc following Question of PID School Psychology Professor following Review CT/GC results Further recommendations depend on clinical course Patient seen in collaboration with Dr. Campos Consultation Date/Type/Reason Admit Date/Time Dec 22, 2016 at 23:39 Initial Consult Date 12/23/16 Type of Consultation: Gastroenterology 24 HR Interval Summary Free Text/Dictation Tolerating diet Hemoglobin stable Reports less abdominal pain Exam/Review of Systems Vital Signs Vitals Vital Signs Date Time Temp Pulse Resp B/P Pulse Ox O2 Delivery O2 Flow Rate FiO2 12/25/16 08:09 98.2 80 16 110/67 100 12/23/16 15:05 Room Air Intake and Output 12/24/16 12/24/16 12/25/16 15:00 23:00 07:00 Intake Total 100 ml 1880 ml 1150 ml Output Total 1320 ml 400 ml Balance 100 ml 560 ml 750 ml Exam Constitutional: alert, oriented, well developed Psych: nl mood/affect Head: normocephalic Eyes: EOMI, nl conjunctiva, nl lids ENMT: nl external ears & nose, nl lips & teeth, nl nasal mucosa & septum Respiratory: clear to auscultation, normal air movement Cardiovascular: regular rate and rhythm Gastrointestinal: soft, slight lower abdominal tenderness Musculoskeletal: nl extremities to inspection Neurological: DRESS DESIGNER II-XII intact Results Result Diagram: 12/25/16 0440 12/25/16 0440 Results 24 hrs Laboratory Tests Test 12/24/16 12:59 12/25/16 02:00 12/25/16 04:40 Bedside Glucose 90 Stool Occult Blood NEGATIVE White Blood Count 6.8 # Red Blood Count 4.81 Hemoglobin 8.5 L Hematocrit 29.8 L Mean Corpuscular Volume 62.0 L Mean Corpuscular Hemoglobin 17.7 L Mean Corpuscular Hemoglobin Concent 28.5 L Red Cell Distribution Width Platelet Count 517 H Mean Platelet Volume Neutrophils % 41.1 Lymphocytes % 42.1 Monocytes % 12.9 H Eosinophils % 2.8 Basophils % 0.7 Nucleated Red Blood Cells % 0.0 Neutrophils # 2.8 Lymphocytes # 2.9 Monocytes # 0.9 Eosinophils # 0.2 Basophils # 0.1 Nucleated Red Blood Cells # 0.0 Sodium Level 137 Potassium Level 4.0 Chloride Level 107 Carbon Dioxide Level 24 Anion Gap 10 Blood Urea Nitrogen 10 Creatinine 0.53 Glucose Level 84 Calcium Level 8.9 Medications Medications Current Medications Dextrose/Sodium Chloride (D5-1/2ns) 1,000 ml @ 125 mls/hr Q8H IV Last administered on 12/25/16 06:12; Admin Dose 125 MLS/HR; Start 12/23/16 at 02:47 Ondansetron HCl (Zofran Inj) 4 mg Q6H PRN IV NAUSEA AND/OR VOMITING; Start at 03:00 Acetaminophen (Tylenol Tab) 650 mg Q6H PRN PO PAIN LEVEL 1-3 OR FEVER; Start at 03:00 Morphine Sulfate 2 mg 2 mg Q4H PRN IV SEVERE PAIN LEVEL 7-10; Start 12/23/16 at 03:00 Levofloxacin/ Dextrose 100 ml @ 100 mls/hr Q24H IVPB Last administered on 12/25 06:13; Admin Dose 100 MLS/HR; Start 12/23/16 at 06:00 Ferric Sodium Gluconate Complex/ Sodium Chloride (Ferrlecit/NS) 110 ml @ 110 mls/hr Q24H IVPB Last administered on 12/24/16 20:04; Admin Dose 110 MLS/HR; Start 12/23/16 at 17:00; Stop 12/27/16 at 17:59 Pantoprazole (Protonix Iv) 40 mg BID@06,18 IV Last administered on 12/25/16 06 :12; Admin Dose 40 MG; Start 12/23/16 at 18:00 KYMBERLY ALMARAZ Apr 30, 2017 11:23
--- NOTE | 2016-12-25 12:40 | PN ---
Date/Time of Note Date/Time of Note DATE: 12/25/16 TIME: 12:39 Assessment/Plan VTE Prophylaxis VTE Prophylaxis Intervention: ambulation Lines/Catheters IV [facility]from [facility] Peripheral IV Urinary Cath still in place: No Assessment/Plan Assessment/Plan The patient is a 41 year old female with sepsis 2/2 LLQ mesenteric inflammation , found to have severe microcytic anemia with elevated RDW # Severe microcytic anemia, 5.9 on admission, MCV 53 with elevated RDW 23 suggesting iron deficiency - Iron panel Fe 81, TIBC 319, %sat 25, ferritin 11.6 consistent with iron deficiency. - Hgb improved with PRBC and iv iron to 8-9 now. - continue IV iron while in house - agree with GI evaluation and Sales Route Driver evaluation - Indirect hyperbilirubinemia may be related to hemolysis from transfusion, monitor -normal LDH, haptoglobin and appropriate retic count,f/u cbc Subjective 24 Hr Interval Summary Constitutional: no complaints ENT: no complaints Respiratory: no complaints Exam/Review of Systems Vital Signs Vitals Vital Signs Date Time Temp Pulse Resp B/P Pulse Ox O2 Delivery O2 Flow Rate FiO2 12/25/16 08:09 98.2 80 16 110/67 100 12/23/16 15:05 Room Air Intake and Output 12/24/16 12/24/16 12/25/16 15:00 23:00 07:00 Intake Total 100 ml 1880 ml 1150 ml Output Total 1320 ml 400 ml Balance 100 ml 560 ml 750 ml Exam Constitutional: alert, oriented Psych: no complaints Eyes: nl conjunctiva, nl sclera Neck: supple Respiratory: normal air movement Gastrointestinal: soft Results Result Diagram: 12/25/16 0440 12/25/16 0440 Results 24 hrs Laboratory Tests Test 12/24/16 12:59 12/25/16 02:00 12/25/16 04:40 Bedside Glucose 90 Stool Occult Blood NEGATIVE White Blood Count 6.8 # Red Blood Count 4.81 Hemoglobin 8.5 L Hematocrit 29.8 L Mean Corpuscular Volume 62.0 L Mean Corpuscular Hemoglobin 17.7 L Mean Corpuscular Hemoglobin Concent 28.5 L Red Cell Distribution Width Platelet Count 517 H Mean Platelet Volume Neutrophils % 41.1 Lymphocytes % 42.1 Monocytes % 12.9 H Eosinophils % 2.8 Basophils % 0.7 Nucleated Red Blood Cells % 0.0 Neutrophils # 2.8 Lymphocytes # 2.9 Monocytes # 0.9 Eosinophils # 0.2 Basophils # 0.1 Nucleated Red Blood Cells # 0.0 Sodium Level 137 Potassium Level 4.0 Chloride Level 107 Carbon Dioxide Level 24 Anion Gap 10 Blood Urea Nitrogen 10 Creatinine 0.53 Glucose Level 84 Calcium Level 8.9 Medications Medications Current Medications Dextrose/Sodium Chloride (D5-1/2ns) 1,000 ml @ 125 mls/hr Q8H IV Last administered on 12/25/16 06:12; Admin Dose 125 MLS/HR; Start 12/23/16 at 02:47 Ondansetron HCl (Zofran Inj) 4 mg Q6H PRN IV NAUSEA AND/OR VOMITING; Start at 03:00 Acetaminophen (Tylenol Tab) 650 mg Q6H PRN PO PAIN LEVEL 1-3 OR FEVER; Start at 03:00 Morphine Sulfate 2 mg 2 mg Q4H PRN IV SEVERE PAIN LEVEL 7-10; Start 12/23/16 at 03:00 Levofloxacin/ Dextrose 100 ml @ 100 mls/hr Q24H IVPB Last administered on 12/25 06:13; Admin Dose 100 MLS/HR; Start 12/23/16 at 06:00 Ferric Sodium Gluconate Complex/ Sodium Chloride (Ferrlecit/NS) 110 ml @ 110 mls/hr Q24H IVPB Last administered on 12/24/16 20:04; Admin Dose 110 MLS/HR; Start 12/23/16 at 17:00; Stop 12/27/16 at 17:59 Pantoprazole (Protonix Iv) 40 mg BID@06,18 IV Last administered on 12/25/16 06 :12; Admin Dose 40 MG; Start 12/23/16 at 18:00 VASILIY HUNTER MD Dec 25, 2016 12:40
[2016-12-25] MEDS ORDERED: FER325 PO (15:25)
[2016-12-25] MEDS ORDERED: ASC500 PO (15:25)
--- NOTE | 2016-12-25 15:28 | PDOCDIS ---
Discharge Instructions CONDITION Patient Condition: Good HOME CARE INSTRUCTIONS: Diet Instructions: Regular ACTIVITY: Activity Restrictions: No Restrictions MAXIMO PEREZ Dec 25, 2016 15:28
--- NOTE | 2016-12-25 16:39 | RADRPT ---
PROCEDURE: MR Abdomen and MRCP. CLINICAL INDICATION: Evaluate common bile duct dilatation. Abnormal ultrasound. Gallstones. TECHNIQUE: MRI abdomen without contrast and MRCP was performed on a high-resolution high field [facility]. Patient was examined without IV contrast. 3-D coronal rotating MIP images of the biliary adan e are available for review. COMPARISON: Ultrasound abdomen dated 12/24/2016; CT scan abdomen dated 12/23/2016 FINDINGS: MRI Abdomen: The liver is normal in size and homogeneous in signal intensity. There is normal signal intensity w ithin the liver. No liver mass lesion or intrahepatic biliary dilatation is seen. The spleen is no rmal in size and homogeneous in signal intensity. The stomach is partially collapsed but grossly un remarkable. The pancreas, as visualized, is equally unremarkable. No pancreatic lesion is seen. T he adrenal glands and kidneys are symmetrically normal. The aorta is of normal caliber. There is n o retroperitoneal lymphadenopathy. The bowel and mesentery, as visualized, are all unremarkable. MRCP: Single gallstone is seen within the gallbladder. The gallbladder itself is mildly distended, withou t significant gallbladder wall thickening or edema. The biliary tree is not dilated. No intrahepati c nor extrahepatic biliary dilatation is present. No filling defect or choledocholithiasis or stric ture or mass lesion or significant biliary obstruction is identified. The pancreatic duct, as visua lized, is equally unremarkable. IMPRESSION: 1. Distended gallbladder with cholelithiasis, without acute cholecystitis. 2. Unremarkable MRCP without filling defect or choledocholithiasis. 3. No evidence for significant biliary dilatation or obstruction at this time. 4. The remainder of the MRI abdomen is otherwise unremarkable. RPTAT: HMJB .Fran Snowden MD, MD Date Time Electronically viewed and signed by .Fran Snowden MD, MD on 12/25/2016 16:39 .B/
--- NOTE | 2016-12-25 18:33 | DS ---
DATE OF ADMISSION: 12/22/2016 DATE OF DISCHARGE: 12/25/2016 DISCHARGE DIAGNOSES: 1. Severe microcytic anemia, status post blood transfusion as well as iron transfusion, now stable. Etiology is not fully clear, likely secondary to iron deficiency. 2. Sepsis, source also unclear, possibly secondary to pelvic inflammatory disease, but sepsis now r esolved. The patient has no abdominal or vaginal pain on the day of discharge. 3. Lung nodule. Follow up with PCP and repeat CT in 6 months. HOSPITAL COURSE: The patient is a 41-year-old female with no significant medical history. The lindy ent denies any history of menorrhagia or melena. The patient presents with abdominal pain. Pain is localized in the left lower quadrant. The patient had a pelvis ultrasound that showed mild amount of cul-de-sac free fluid, otherwise unremarkable pelvic ultrasound. The patient had a CT abdomen wi thout contrast and then with contrast. The one with contrast showed possible PID. No tubo-ovarian abscess identified. The patient did have fevers at one point. She did have an abdominal ultrasound that showed no cholecystitis. She had an MRCP that did not show cholelithiasis, otherwise was unre markable. The patient was seen by hematology and GI during the hospitalization. She did receive 3 units of packed red blood cells. Iron panel did not show iron deficiency, but patient was severely microcytic. Her retic count and LDH were within normal limits. The patient did receive antibiotics during the hospitalization and her sepsis did resolve. She denied any further abdominal pain or pe lvic pain. She did receive IV iron as well. It was felt that patient was stable for discharge. Sh e had no further complaints. Of note, the patient did have a lung nodule on the right side of 6 mm. Recommendation was follow up in 6 months. On the day of discharge, the patient's vitals, labs, an d physical exam was stable. She had no acute complaints. Questions were answered. CONDITION ON DISCHARGE: Stable. DISPOSITION: To home. MEDICATIONS: 1. The patient was given a prescription for iron 325 mg p.o. b.i.d. for 30 days. 2. Vitamin C 500 mg p.o. b.i.d. for 30 days. 3. The patient should continue her home Tylenol as needed. FOLLOWUP: The patient is to follow up with her PCP in 1 to 2 weeks. Greater than 30 minutes were spent in coordinating the discharge of patient. Dictated By: MAXIMO HERNANDEZ/NTS Conf#: [id number] DID#: [id number]
[2016-12-26 07:09] LABS: HEMATOCRIT 27.2 % (35.0-45.0); HEMOGLOBIN 7.1 g/dL (11.7-15.5); MCH 16.3 pg (27.0-33.0); MCV 62.5 fL (80.0-100.0); RDW 31.5 % (11.0-15.0); RED BLOOD CELL COUNT 4.35 Million/uL (3.80-5.10)
--- NOTE | 2016-12-26 07:47 | CONS ---
DATE OF ADMISSION: 12/22/2016 DATE OF CONSULTATION: 12/24/2016 TYPE OF CONSULTATION: Infectious Disease. REASON FOR CONSULTATION: Antibiotic management. HISTORY OF PRESENT ILLNESS: Josy Yadav is a 41-year-old female with a history of ectopic prepregnancy 13 years ago and x2, who presented with a 4-day history of abdominal pain in the left lower quadrant. She also has had decreased p.o. intake. She had a white count of 5.9 on admission, hematocrit 23.7, white count 13.4, platelet count is 641. On 12/24/2016, the wh ite count is 8.7. BUN and creatinine 77/0.55. Urine is positive for nitrite and only has 2 to 5 wh ite cells per high-power field, it is trace leukocyte esterase positive. Blood cultures so far are negative. She had a pelvic ultrasound which showed a mild amount of fluid in the cul-de-sac. Chest x-ray: No evidence of acute intrathoracic pathology. A CT scan of the abdomen and pelvis: Mild l eft lower quadrant hemipelvic mesenteric inflammation. She could have mesenteritis. She has a 6 mm right lobe nodule, cholelithiasis without evidence of acute cholecystitis. She has right mid dle lobe 6 mm nodule, stable in size. No drainable tubo-ovarian abscess is visualized. Rim-enhanci ng dilated tubular structure at the left adnexa with associated inflammatory stranding has progresse d from prior, possible pelvic inflammatory disease. Ultrasound on 12/24/2016: There is borderline appearance of the common duct, which can be correlated with bilirubin levels. The patient was seen by Dr. Peggy Valenzuela. The patient has severe microcytic anemia, iron deficiency. Denies any history of inherited disorder such as thalassemia. Recent GI and NET SOFTWARE DEVELOPER evaluation. Currently evaluate GI bl eed, no evidence of bowel obstruction. White count was 8.9 on 12/23/2016. She is currently just on Levaquin. For now we do not see any specific evidence of infection. We wi ll continue the Levaquin for the time being. I will dictate my findings to the hospitalist and to t he consultants. Dictated By: LUIS MUNOZ MD, JD/CHRISTINA Conf#: [id number] [facility]#: [id number]
[2016-12-27 12:22] LABS: HEMOGLOBIN A 98.1 % (>96.0); HEMOGLOBIN A2 (QUANT) 1.9 % (1.8-3.5); HEMOGLOBIN F <1.0 % (<2.0)
== END 2016-12-25 16:50 | disposition home or self-care (01) | DRG 872 ==
LOC: FTE 17:53 → MS1 23:39
PROVIDERS: ADMIT Internal Medicine; ATTEND Internal Medicine
PROC: 30233N1 Transfusion of Nonautologous Red Blood Cells into Peripheral Vein, Percutaneous Approach (ICD-10-PCS; 2016-12-22)
PROC: 30233N1 Transfusion of Nonautologous Red Blood Cells into Peripheral Vein, Percutaneous Approach (ICD-10-PCS; principal; 2016-12-23)
DX: A41.9 Sepsis, unspecified organism (principal); N39.0 Urinary tract infection, site not specified; N73.9 Female pelvic inflammatory disease, unspecified; D50.0 Iron deficiency anemia secondary to blood loss (chronic); R91.1 Solitary pulmonary nodule; B95.4 Other streptococcus as the cause of diseases classified elsewhere; K80.20 Calculus of gallbladder without cholecystitis without obstruction
CPT/HCPCS: 36430; 71010; 74176; 74177; 74181; 76705; 76830; 76856; 80048; 80053; 80076; 81001; 81003; 82270; 82728; 82962; 83010; 83020; 83540; 83605; 83615; 83690; 83735; 84100; 85025; 85045; 85610; 85730; 86850; 86900; 86901; 86920; 87040; 87086; 87591; C9113; J0696; J1956; J2270; J2405; J2916; J7030; J7040; J7042; P9016; Q9967